=== PATIENT | female | born 1950 | race Caucasian/White ===

== ENCOUNTER 2016-11-24 08:33 | Day surgery (SDC) | payer MEDICARE ==
[2016-11-24] MEDS ORDERED: Lactated Ringers 1,000 ML IV SCH (09:00)
[2016-11-24 09:03] LABS: Mean Cell Volume 85.1 fl (78-100); Mean Corpuscular Hemoglobin 28.6 pg (26-32); Mean Platelet Volume 10.1 fl (6-9.5); Platelet Count 313 K/mm3 (150-450); Red Blood Count 4.89 M/mm3 (4.1-5.4); Red Cell Distribution Width 14.1 % (11.5-14.0); White Blood Count 10.1 K/mm3 (4.0-10.5)
[2016-11-24 09:16] VITALS: O2SAT 98
[2016-11-24 09:16] LABS: ANION GAP 15.5 MEQ/L (5-15); BLOOD UREA NITROGEN 8 mg/dL (9-20); CHLORIDE 105 mEq/L (98-107); Carbon Dioxide 24.1 mEq/L (21-32); Glucose 132 MG/DL (70-110); Potassium 3.6 mEq/L (3.5-5.1); SODIUM 141 mEq/L (136-145)
[2016-11-24] MEDS ORDERED: Ketamine HCl 50 MG/ML IV ONE (10:00)
[2016-11-24] MEDS ORDERED: DIPRIVAN 200 MG/20 ML IV ONE (10:00)
[2016-11-24 15:00] VITALS: BP 148/72; PULSE 61
--- NOTE | 2016-11-25 16:37 | OP ---
SURGERY DATE: 11/24/16 SURGERY TIME: 1000 PREOPERATIVE DIAGNOSIS: 1. NEEDS SCREENING COLONOSCOPY. POSTOPERATIVE DIAGNOSIS: 1. MARGINAL PREP. 2. TORTUOUS COLON. 3. COLONIC POLYPS. PROCEDURE: 1. Colonoscopy to the level of the hepatic flexure with hot forceps polypectomy X 2. SURGEON: Dr. Anabella Shearer. ANESTHESIA: MAC. ESTIMATED BLOOD LOSS: Minimal. COMPLICATIONS: None. SPECIMENS: 1. Descending colon polyp. 2. Sigmoid colon polyp. HISTORY OF PRESENT ILLNESS: This is a 66 y/o female who presence for screening colonoscopy. All risks, benefits, and alternatives regarding colonoscopy have been discussed with the patient in detail. She understands and agrees to proceed. PROCEDURE DETAILS: The patient was seen in the preoperative area. Brought back to the endoscopy suite. Laid in the left lateral decubitus position. Complete time-out performed. Rectal exam was done and satisfactory. The scope was then inserted and carefully navigated towards the sigmoid. The patient did have quite marginal prep. She had quite a bit of thick liquid stool and a lot of thick adherent stool to the colonic wall. She also had quite a bit of colonic spasm as well and her colon was extremely tortuous. This made the colonoscopy very difficult. We were able to navigate the scope with gentle abdominal pressure to the level of about the hepatic flexure. However, here, the prep was quite marginal and she did have quite a tortuous colon and so we aborted the procedure at this level with plans to get a barium enema after further prep. At this point, we then carefully withdrew the scope trying to take as good of a look circumferentially as possible. Our exam was quite limited due to the prep. There were areas where we were able to clean the colon off much better and so we really tried to irrigate and clean the colon as much as possible. I was able to visualize 2 polyps, 1 in the descending colon and 1 in the sigmoid colon. These were taken with hot forceps polypectomy in entirety. Both sites were hemostatic. The patient had few diverticula scattered throughout this area. Outside of this, I did not see any significant findings and what we could see of the mucosa was healthy. The scope was able to be fully removed. The patient tolerated the procedure very well. I will keep her on a 3 year reminder for colonoscopy because of her polyps that were identified and we will want to do a 2 day prep for her next colonoscopy instead. We will also get a barium enema now to rule out any large or concerning lesions in the areas of the colon which we were not able to visualize.
== END 2016-11-24 12:10 | disposition home or self-care (01) ==
LOC: SDC 08:33
PROVIDERS: ATTEND Surgery
PROC: 0DBN8ZX Excision of Sigmoid Colon, Via Natural or Artificial Opening Endoscopic, Diagnostic (ICD-10-PCS; principal; 2016-11-24)
PROC: 0DBM8ZX Excision of Descending Colon, Via Natural or Artificial Opening Endoscopic, Diagnostic (ICD-10-PCS; 2016-11-24)
DX: D12.5 Benign neoplasm of sigmoid colon (principal); D12.4 Benign neoplasm of descending colon; Z12.11 Encounter for screening for malignant neoplasm of colon; Z79.899 Other long term (current) drug therapy
CPT/HCPCS: 00810; 36415; 80048; 82962; 85027; 88305; J2704

== ENCOUNTER 2021-08-29 09:04 | Day surgery (SDC) | payer MEDICARE ==
--- NOTE | 2021-08-29 08:33 | HP ---
DATE OF SURGERY: 08/29/2021 HISTORY OF PRESENT ILLNESS: The patient is a 71-year-old with occasional reflux, nausea after eating, worse with sauces and I think she mentioned potatoes as well. Family history negative for esophageal cancer, negative for stomach cancer. PAST MEDICAL HISTORY: Diabetes. Hypothyroidism. Hypertension. Hyperlipidemia. PAST SURGICAL HISTORY: Appendectomy. Left elbow cyst removed in the past. Cholecystectomy. She had endoscopy by Dr. Anabella Shearer in the past. MEDICATIONS: Novolog, Tresiba, Ozempic, Jardiance, levothyroxine, sucralfate, rosuvastatin, vitamin D2, pantoprazole, furosemide, Oxybutynin, lisinopril, Breo inhaler, Xanax. ALLERGIES: CIPRO. LEVEMIR. FAMILY HISTORY: Cancer, diabetes. SOCIAL HISTORY: Quit smoking four years or so ago. No alcohol abuse. REVIEW OF SYSTEMS: Fourteen systems reviewed. No chest pain or palpitations. Other systems negative or noncontributory as above and per preadmission questionnaire. PHYSICAL EXAMINATION: GENERAL: No acute distress. HEENT: Sclerae nonicteric. NECK: No JVD. CHEST: Equal excursion, nonlabored breathing. CVS: Regular rate and rhythm. ABDOMEN: Soft. No peritoneal signs. EXTREMITIES: No significant edema. NEURO: Alert, oriented, moving extremities symmetrically. PSYCH: Appropriate mood and affect. IMPRESSION: Increased reflux and nausea. She is in need of upper endoscopy to evaluate for esophagitis, gastritis, peptic ulcer disease or other etiology. She does have diabetes. She may have some gastric motility issues because of her diabetes which could be part of her issues. I feel she would benefit from upper endoscopy, possible biopsy as an outpatient. Risks and benefits explained in detail including but not limited to bleeding or infection, risk of bowel injury or perforation possibly requiring open procedure, risk of missed or nondiagnosis or incomplete exam possibly requiring barium swallow, other studies or procedures. General risk of anesthesia or sedation but not limited to, possible inability to diagnose the etiology of her symptoms. She understands and agrees to the planned procedure, will proceed with EGD possible biopsy under MAC anesthesia as an outpatient.
[2021-08-29] MEDS ORDERED: Lactated Ringers 1,000 ML IV SCH (10:00)
[2021-08-29] MEDS ORDERED: DIPRIVAN 200 MG/20 ML IV ONE (11:04)
[2021-08-29] MEDS ORDERED: Xylocaine-Mpf 2% 5 Ml Vial ONE (11:04)
[2021-08-29 12:25] VITALS: BP 170/79; PULSE 69; O2SAT 99
--- NOTE | 2021-08-29 14:40 | OP ---
SURGERY DATE/TIME: 08/29/2021 1120 PREOPERATIVE DIAGNOSES: 1) Nausea after eating. 2) Some increased reflux. Need for upper endoscopy for further evaluation. POSTOPERATIVE DIAGNOSES: 1) Mild gastritis. 2) Small gastric polyp. PROCEDURES: 1) EGD with cold biopsy of small bowel to evaluate for celiac sprue. 2) Cold biopsy of the antrum to evaluate for Helicobacter pylori. 3) Cold biopsy of small benign appearing gastric polyp. 4) Cold biopsy of distal esophagus. 5) Cold biopsy mid esophagus to evaluate for eosinophilic esophagitis. SURGEON: Dr. Samuel Calderon. ANESTHESIA: MAC. ESTIMATED BLOOD LOSS: Minimal. INDICATIONS: As noted above. Risks and benefits explained in detail and not limited to and consent obtained. DESCRIPTION OF PROCEDURE AND FINDINGS: The patient is taken to the endoscopy room. MAC anesthesia introduced. After official time out and no disagreement with planned procedure, a bite block positioned. Video gastroscope easily passed down the esophagus to the patent pylorus to the third portion of the duodenum. It was grossly unremarkable. Given her symptom complaints of nausea some random cold biopsies taken of proximal duodenum to evaluate for celiac sprue. Good hemostasis noted. Scope pulled back to the stomach. She had some mild gastric erythema consistent with some mild gastritis. No evidence of any ulcers or any significant masses. Small gastric fundal area polyp. It was biopsied with cold biopsy. Cold biopsy also taken in the antrum for Helicobacter pylori. On retroflex the gastroesophageal junction was snug against the scope. No signs of any significant hiatal hernia. Scope is straightened. Gastroesophageal junction about 38 to 39 cm. Z-line was fairly crisp. Whether there is a little bit of creeping of salmon pink mucosa upward or not, some cold biopsies were taken of the distal esophagus. There was no evidence of any erosions. There is no evidence of any large segments of any evidence of Carrizales's. Good hemostasis noted. Scope pulled back up the mid esophagus. Given her symptom complaints, some random cold biopsies were taken to evaluate for eosinophilic esophagitis. Good hemostasis noted. There were no signs of any obvious ulcers, masses or mucosal lesions other than as noted above. The patient tolerated the procedure well. Findings discussed with the family out in the waiting area.
== END 2021-08-29 12:28 | disposition home or self-care (01) ==
LOC: SDC 09:04
PROVIDERS: ATTEND Surgery
DX: K29.70 Gastritis, unspecified, without bleeding (principal); R11.0 Nausea; K21.9 Gastro-esophageal reflux disease without esophagitis; K31.7 Polyp of stomach and duodenum
CPT/HCPCS: 82947; 99100; J2704